=== PATIENT | female | born 1990 | race Two or more races ===

== ENCOUNTER 2018-07-25 23:58 | Inpatient (IN) | payer OTHER ==
[2018-07-26] MEDS ORDERED: Nalbuphine 20 MG/ML 1 ML Syringe IVPUSH PRN ×2 (01:04→14:35)
[2018-07-26] MEDS ORDERED: Ondansetron 4 MG/2 ML SDV IVPUSH PRN (01:04)
[2018-07-26] MEDS ORDERED: Sodium Chloride 0.9% 10 ML Syringe FLUSH PRN ×2 (01:04→14:35)
[2018-07-26] MEDS ORDERED: Oxytocin/Lactated Ringers 10 UNIT/1,000 ML BAG IV SCH ×4 (01:15→18:07)
[2018-07-26] MEDS ORDERED: Lactated Ringers 1,000 ML IV SCH ×3 (02:20→18:07)
--- NOTE | 2018-07-26 02:22 | PCM.LDHP ---
L&D History of Present Illness - General Date of Service: 07/26/18 Admit Problem/Dx: Patient Status Order with Admit Dx/Problem 07/26/18 00:12 Patient Status [ADT] Routine 07/26/18 01:04 Patient Status [ADT] Routine Admission Diagnosis/Problem Admission Diagnosis/Problem Source of Information: Patient History Limitations: Reports: No Limitations - History of Present Illness Introduction:: Alicia Mcrae is a 28 year old female at 36 weeks 4 days (MADDI 2018) by early U/S per her report who presents for evaluation of possible rupture of membranes. She reports that she has been having episodes of small gushes of fluid throughout the day and had been pink tinged color. She had at least 3-4 of these episodes. She eventually came in pressure she started having increased amounts of contractions with these episodes of small gushes of fluid. She reports the first episode happened at around 6 AM on 07/25/2018 and then again at around noon and at 6 to 6:30 PM. Once she was in the hospital she had an extremely large gush of fluid after having tested positive on Amnisure test. She reports good movement. Timing/Duration: Reports: intermittent Location, : Reports: Lower back, Pelvic Quality: Reports: Pressure, Throbbing Severity: Moderate Improves with: Reports: None Worsens with: Reports: None Associated Symptoms: Reports: vaginal fluid, large amount Present Illness Comments:: Alicia Mcrae is a 28 year old female at 36 weeks 4 days (MADDI 2018) by early ultrasound per her report with positive premature rupture of membranes with positive Amnisure test and large gush of fluid. She is having regular contractions without augmentation. She has had limited care in the [place] with one visit with Dr. Silverman on 07/15/2018. We do not have any records available from the hospital in [place] that she was going to for care. She was planning on having these records sent to our office sometime this week. 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: : 2 Para: 0 Endocrine/Metabolic History: Reports: Obesity/BMI 30+ - Past Surgical History GI Surgical History: Reports: Bariatric Procedure (Gastric bypass in 2018) Social & Family History - Tobacco Use Smoking Status *Q: Never Smoker Tobacco Use Within Last Twelve Months: No - Tobacco Core Measures Tobacco Use/Smoking Within Last 30 Days: No Smokeless Tobacco Use in Last 30 Days: No - Alcohol Use Alcohol Use History: No - Recreational Drug Use Recreational Drug Use: No Drug Use in Last 12 Months: No - Living Situation & Occupation Living situation: Reports: Single, with Significant Other H&P Review of Systems - Review of Systems: Review Of Systems: See Below General: Denies: Fever, Chills, Malaise, Weakness, Fatigue HEENT: Reports: Glasses. Denies: Headaches, Sinus Congestion, Sore Throat, Visual Changes Pulmonary: Denies: Shortness of Breath, Wheezing, Cough Cardiovascular: Denies: Chest Pain, Palpitations, Dyspnea on Exertion Gastrointestinal: Reports: Nausea. Denies: Abdominal Pain, Constipation, Diarrhea, Vomiting Genitourinary: Denies: Dysuria, Frequency, Burning, Pain, Urgency Musculoskeletal: Reports: Back Pain Skin: Denies: Rash, Lesions Psychiatric: Denies: Depression, Anxiety L&D Exam - Exam Exam: See Below - OB Specific Contraction Duration (sec): 45-75 Contraction Frequency (min): 2-4 Contraction Intensity: Strong Movement: Active Heart Tones: Present Heart Tones per Min: 140 (+15 x 15 accelerations, recurrent variable decelerations) Heart Rate (FHR) Variability: Moderate (6-25 bmp) Presentation: Vertex Estimated Weight: 6-6.5 by Quentin's, difficult to assess due to body habitus - Hodges Score Hodges Score Cervix Position: Anterior Hodges Score Consistency: Soft Hodges Score Effacement: >80% (90) Hodges Score Dilation: 3-4 cm (4) Hodges Score Infant's Station: -1 ,0 (0) Hodges Score Total: 11 - Exam General: Alert, Oriented HEENT: Conjunctiva Clear, EOMI Neck: Supple, Trachea Midline Lungs: Clear to Auscultation, Normal Respiratory Effort Cardiovascular: Regular Rate, Regular Rhythm GI/Abdominal Exam: Soft, No Distention, Other (Gravid). No: Guarding, Rigid, Rebound Genitourinary: Normal external exam Extremities: Normal Inspection, No Pedal Edema Skin: Warm, Dry, Intact Psychiatric: Alert, Normal Affect, Normal Mood - Patient Data Lab Results Last 24 hrs: Laboratory Results - last 24 hr 07/26/18 07/26/18 Range/Units 00:17 01:15 WBC 8.36 (3.98-10.04) K/mm3 RBC 4.36 (3.98-5.22) M/mm3 Hgb 12.0 (11.2-15.7) gm/L Hct 35.9 (34.1-44.9) % MCV 82.3 (79.4-94.8) fl MCH 27.5 (25.6-32.2) pg MCHC 33.4 (32.2-35.5) g/dl RDW Std Deviation 40.1 (36.4-46.3) fL Plt Count 180 L (182-369) K/mm3 MPV 10.3 (9.4-12.3) fl Membrane Rupture Positive H Result Diagrams: 07/26/18 01:15 - Problem List (1) 36 weeks gestation of SNOMED Code(s): 83955710 ICD Code: Z3A.36 - 36 WEEKS GESTATION OF Status: Acute Current Visit: Yes (2) premature rupture of membranes in third trimester SNOMED Code(s): 443970659 ICD Code: O42.913 - PRETRM PAT ROM, UNSP TIME BETW RUPT AND ONST LABR, 3RD TRI Status: Acute Current Visit: Yes (3) Limited care in third trimester SNOMED Code(s): 270895145, 071746714 ICD Code: O09.33 - SUPRVSN OF PREG W INSUFFICIENT ANTENAT CARE, THIRD TRIMESTER Status: Acute Current Visit: Yes (4) Obesity affecting in third trimester SNOMED Code(s): 830106525119, 470021078925 ICD Code: O99.213 - OBESITY COMPLICATING , THIRD TRIMESTER Status : Acute Current Visit: Yes Problem List Initiated/Reviewed/Updated: Yes Orders Last 24hrs: Active Orders 24 hr Category Date Time Status Patient Status [ADT] Routine ADT 07/26/18 01:04 Active Activity as Tolerated [RC] PFP Care 07/26/18 01:04 Active Communication Order [RC] ASDIRECTED Care 07/26/18 01:04 Active Heart Tones [RC] ASDIRECTED Care 07/26/18 01:04 Active Non Stress Test [RC] PER UNIT ROUTINE Care 07/26/18 00:12 Active Non Stress Test [RC] PER UNIT ROUTINE Care 07/26/18 01:04 Active Notify Provider [RC] PFP Care 07/26/18 01:04 Active Notify Provider [RC] PRN Care 07/26/18 01:04 Active Peripheral IV Care [RC] . DIRECTED Care 07/26/18 01:04 Active Vital Signs [RC] PER UNIT ROUTINE Care 07/26/18 00:12 Active Vital Signs [RC] PER UNIT ROUTINE Care 07/26/18 01:04 Active Regular Diet [DIET] Diet 07/26/18 Breakfast Active RAPID PLASMA REAGIN,RPR [CHEM] Routine Lab 07/26/18 01:15 Received Lactated Ringers [Ringers, Lactated] 1,000 ml Med 07/26/18 01:15 Active IV ASDIRECTED Nalbuphine [Nubain] Med 07/26/18 01:04 Active 10 mg IVPUSH Q2H PRN Ondansetron [Zofran] Med 07/26/18 01:04 Active 4 mg IVPUSH Q4H PRN Oxytocin/Lactated Ringers [Pitocin in LR 10 Units/1,000 Med 07/26/18 01:15 Active ML] 10 unit in 1,000 ml IV .CONTINUOUS Oxytocin/Lactated Ringers [Pitocin in LR 10 Units/1,000 Med 07/26/18 01:15 Active ML] 10 unit in 1,000 ml IV TITRATE Sodium Chloride 0.9% [Saline Flush] Med 07/26/18 01:04 Active 10 ml FLUSH ASDIRECTED PRN Electronic Heart Tones Ext w TOCO [WOMSER] Oth 07/26/18 01:04 Ordered Routine Electronic Heart Tones Internal [WOMSER] Per Unit Oth 07/26/18 01:04 Ordered Routine Peripheral IV Insertion Adult [OM.PC] Routine Oth 07/26/18 01:04 Ordered Resuscitation Status Routine Resus Stat 07/26/18 01:04 Ordered Medication Orders Lactated Ringer's (Ringers, Lactated) 1,000 mls @ 100 mls/hr IV ASDIRECTED LEIGH Oxytocin/Lactated Ringer's (Pitocin In Lr 10 Units/1,000 Ml) 10 unit in 1,000 mls @ 12 mls/hr IV TITRATE LEIGH; Protocol Oxytocin/Lactated Ringer's (Pitocin In Lr 10 Units/1,000 Ml) 10 unit in 1,000 mls @ 100 mls/hr IV .CONTINUOUS LEIGH Nalbuphine HCl (Nubain) 10 mg IVPUSH Q2H PRN PRN Reason: pain Ondansetron HCl (Zofran) 4 mg IVPUSH Q4H PRN PRN Reason: Nausea/Vomiting Sodium Chloride (Saline Flush) 10 ml FLUSH ASDIRECTED PRN PRN Reason: Keep Vein Open Assessment/Plan Comment:: Refer to observation for spontaneous premature rupture of membranes Patient with recurrent variables with suspected contractions on external tocometer and difficult to monitor heart rate in conjunction to the contractions. Intrauterine pressure catheter was placed at time of cervical exam. Patient continued to have recurrent variable decelerations and amnioinfusion was started. Continuous monitoring Place IV and have Lactated Ringer's at 125 ml/hr May have small amounts of regular diet Activity as tolerated May have epidural as desired Plans to breast-feed after delivery Anticipate vaginal delivery unless otherwise indicated Andrew Camacho M.D. 2:40 AM 07/26/2018
[2018-07-26] MEDS: Lactated Ringers 1,000 ML IV SCH ×5 (02:33→14:41)
--- NOTE | 2018-07-26 03:03 | PCM.PNLD ---
Labor Progress Note - VS & Meds Active Medications: Current Medications Lactated Ringer's (Ringers, Lactated) 1,000 mls @ 100 mls/hr IV ASDIRECTED LEIGH Last Admin: 07/26/18 02:33 Dose: 100 mls/hr Oxytocin/Lactated Ringer's (Pitocin In Lr 10 Units/1,000 Ml) 10 unit in 1,000 mls @ 12 mls/hr IV TITRATE LIEGH; Protocol Oxytocin/Lactated Ringer's (Pitocin In Lr 10 Units/1,000 Ml) 10 unit in 1,000 mls @ 100 mls/hr IV .CONTINUOUS LEIGH Lactated Ringer's (Ringers, Lactated) 1,000 mls @ 100 mls/hr IV ASDIRECTED LEIGH Nalbuphine HCl (Nubain) 10 mg IVPUSH Q2H PRN PRN Reason: pain Ondansetron HCl (Zofran) 4 mg IVPUSH Q4H PRN PRN Reason: Nausea/Vomiting Sodium Chloride (Saline Flush) 10 ml FLUSH ASDIRECTED PRN PRN Reason: Keep Vein Open - Uterine Contractions Uterine Monitoring Mode: IUPC Contraction Frequency (min): 2-4 Contraction Duration (sec): 60-75 Contraction Intensity: Moderate to Strong Uterine Resting Tone: Soft - Monitoring Monitor Mode: Spiral Electrode Heart Rate (FHR) Baseline: 145 Heart Rate (FHR) Variability: Moderate (6-25 bmp) Accelerations: Present, 15x15 Decelerations: Variable, Recurrent (>50% x 20 min) Strip Review: Category II - Vaginal Exam Dilation (cm): 5 Effacement (Percent): 100 Station: 0 Cervical Position: Anterior Sterile Vaginal Exam Performed By: Andrew Camacho Vaginal Exam Comment: scalp electrode placed due to difficulty monitoring using Doppler monitor. Electrodes placed without difficulty in mother and infant tolerated without difficulty. - Labor Progress (Free Text) Labor Progress: scalp electrode placed due to difficulty with monitoring heart rate with external Doppler monitor. Patient continues to have recurrent variable decelerations with amnioinfusion. We will continue amnioinfusion at this time. Patient desires epidural for anesthesia at this time and we will contact anesthesia Anticipate vaginal delivery unless otherwise indicated Andrew Camacho M.D. 3:03 AM 07/26/2018
[2018-07-26] MEDS ORDERED: fentaNYL 100 MCG/2 ML SDV EPIDUR PRN (03:23)
[2018-07-26] MEDS ORDERED: diphenhydrAMINE 50 MG/ML SDV IVPUSH PRN ×2 (03:23→18:07)
[2018-07-26] MEDS ORDERED: ePHEDrine 50 MG/ML SDV IVPUSH PRN ×2 (03:23→18:07)
[2018-07-26] MEDS ORDERED: Bupivacaine/fentaNYL/NS 100 ML Bag EPIDUR SCH (04:00)
--- NOTE | 2018-07-26 04:14 | PCM.PREANE ---
Preanesthetic Assessment - Anesthesia/Transfusion/Family Hx Anesthesia History: No Prior Anesthesia Family History of Anesthesia Reaction: No Transfusion History: No Prior Transfusion(s) Intubation History: Unknown - Review of Systems General: No Symptoms Pulmonary: No Symptoms Cardiovascular: No Symptoms Gastrointestinal: No Symptoms Neurological: No Symptoms Other: Reports: None - Physical Assessment Height: 1.63 m Weight: 108.409 kg ASA Class: 2E Mental Status: Alert & Oriented x3 Airway Class: Mallampati = 2 Dentition: Reports: Normal Dentition ROM/Head Extension: Full Lungs: Clear to Auscultation, Normal Respiratory Effort Cardiovascular: Regular Rate, Regular Rhythm, No Murmurs - Lab Values: Laboratory Last Values WBC 8.36 K/mm3 (3.98-10.04) 07/26/18 01:15 RBC 4.36 M/mm3 (3.98-5.22) 07/26/18 01:15 Hgb 12.0 gm/L (11.2-15.7) 07/26/18 01:15 Hct 35.9 % (34.1-44.9) 07/26/18 01:15 MCV 82.3 fl (79.4-94.8) 07/26/18 01:15 MCH 27.5 pg (25.6-32.2) 07/26/18 01:15 MCHC 33.4 g/dl (32.2-35.5) 07/26/18 01:15 RDW Std Deviation 40.1 fL (36.4-46.3) 07/26/18 01:15 Plt Count 180 K/mm3 (182-369) L 07/26/18 01:15 MPV 10.3 fl (9.4-12.3) 07/26/18 01:15 Membrane Rupture Positive H 07/26/18 00:17 - Allergies Allergies/Adverse Reactions: Allergies Allergy/AdvReac Type Severity Reaction Status Date / Time No Known Allergies Allergy Verified 07/26/18 02:35 - Anesthesia Plan Pre-Op Medication Ordered: None - Acknowledgements Anesthesia Type Planned: Epidural Pt an Appropriate Candidate for the Planned Anesthesia: Yes Alternatives and Risks of Anesthesia Discussed w Pt/Guardian: Yes Pt/Guardian Understands and Agrees with Anesthesia Plan: Yes 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: Endocrine/Metabolic History: Reports: Obesity/BMI 30+ - Past Surgical History GI Surgical History: Reports: Bariatric Procedure (Gastric bypass in 2018) - SUBSTANCE USE Smoking Status *Q: Never Smoker Tobacco Use Within Last Twelve Months: No Recreational Drug Use History: No - CURRENT (IN HOUSE) MEDS Current Meds: Current Medications Diphenhydramine HCl (Benadryl) 25 mg IVPUSH Q6H PRN PRN Reason: Pruritis Ephedrine Sulfate (Ephedrine Sulfate) 5 mg IVPUSH ONETIME PRN PRN Reason: Hypotension Fentanyl (Sublimaze) 100 mcg EPIDUR Q3H PRN PRN Reason: Pain Fentanyl/Bupivacaine HCl (Fentanyl/Bupivacaine/Ns 2 Mcg-0.125% 100 Ml) 100 ml EPIDUR ASDIRECTED LEIGH Lactated Ringer's (Ringers, Lactated) 1,000 mls @ 100 mls/hr IV ASDIRECTED LEIGH Last Admin: 07/26/18 03:38 Dose: 500 mls/hr Oxytocin/Lactated Ringer's (Pitocin In Lr 10 Units/1,000 Ml) 10 unit in 1,000 mls @ 12 mls/hr IV TITRATE LEIGH; Protocol Oxytocin/Lactated Ringer's (Pitocin In Lr 10 Units/1,000 Ml) 10 unit in 1,000 mls @ 100 mls/hr IV .CONTINUOUS LEIGH Lactated Ringer's (Ringers, Lactated) 1,000 mls @ 100 mls/hr IV ASDIRECTED LEIGH Last Infusion: 07/26/18 02:45 Dose: 50 mls/hr Nalbuphine HCl (Nubain) 10 mg IVPUSH Q2H PRN PRN Reason: pain Ondansetron HCl (Zofran) 4 mg IVPUSH Q4H PRN PRN Reason: Nausea/Vomiting Sodium Chloride (Saline Flush) 10 ml FLUSH ASDIRECTED PRN PRN Reason: Keep Vein Open
--- NOTE | 2018-07-26 04:14 | PCM.POSTAN ---
POST ANESTHESIA ASSESSMENT - MENTAL STATUS Mental Status: Alert - RESPIRATORY Respiratory Status: Respiratory Rate WNL, Airway Patent, O2 Saturation Stable - CARDIOVASCULAR CV Status: Pulse Rate WNL, Blood Pressure Stable - GASTROINTESTINAL GI Status: No Symptoms - POST OP HYDRATION Hydration Status: Adequate & Stable
[2018-07-26] MEDS ORDERED: Metoclopramide 10 MG/2 ML SDV IVPUSH ONE (14:35)
[2018-07-26] MEDS ORDERED: ceFAZolin 2 GM in Premix Bag 1 BAG IV ONE (14:35)
[2018-07-26] MEDS ORDERED: Citric Acid/Sodium Citrate Solution 30 ML Cup PO ONE (14:35)
[2018-07-26] MEDS ORDERED: Azithromycin 500 MG in Sodium Chloride 0.9% 250 ML IV ONE (14:37)
--- NOTE | 2018-07-26 14:47 | PCM.PNLD ---
Labor Progress Note - VS & Meds Vital Signs: Last Vital Signs Temp 36.8 C 07/26/18 00:45 Pulse 104 H 07/26/18 00:45 Resp 20 07/26/18 00:45 BP 116/71 07/26/18 00:45 Pulse Ox 98 07/26/18 00:45 Active Medications: Current Medications Diphenhydramine HCl (Benadryl) 25 mg IVPUSH Q6H PRN PRN Reason: Pruritis Ephedrine Sulfate (Ephedrine Sulfate) 5 mg IVPUSH ONETIME PRN PRN Reason: Hypotension Fentanyl (Sublimaze) 100 mcg EPIDUR Q3H PRN PRN Reason: Pain Fentanyl/Bupivacaine HCl (Fentanyl/Bupivacaine/Ns 2 Mcg-0.125% 100 Ml) 100 ml EPIDUR ASDIRECTED LEIGH Last Admin: 07/26/18 13:14 Dose: 100 ml Lactated Ringer's (Ringers, Lactated) 1,000 mls @ 100 mls/hr IV ASDIRECTED LEIGH Last Admin: 07/26/18 09:08 Dose: 100 mls/hr Oxytocin/Lactated Ringer's (Pitocin In Lr 10 Units/1,000 Ml) 10 unit in 1,000 mls @ 12 mls/hr IV TITRATE LEIGH; Protocol Last Titration: 07/26/18 13:15 Dose: 6 munits/min, 36 mls/hr Oxytocin/Lactated Ringer's (Pitocin In Lr 10 Units/1,000 Ml) 10 unit in 1,000 mls @ 100 mls/hr IV .CONTINUOUS LEIGH Lactated Ringer's (Ringers, Lactated) 1,000 mls @ 100 mls/hr IV ASDIRECTED [facility] Last Infusion: 07/26/18 02:45 Dose: 50 mls/hr Nalbuphine HCl (Nubain) 10 mg IVPUSH Q2H PRN PRN Reason: pain Ondansetron HCl (Zofran) 4 mg IVPUSH Q4H PRN PRN Reason: Nausea/Vomiting Sodium Chloride (Saline Flush) 10 ml FLUSH ASDIRECTED PRN PRN Reason: Keep Vein Open - Uterine Contractions Uterine Monitoring Mode: IUPC Contraction Frequency (min): 2-5 Contraction Duration (sec): 45-60 Contraction Intensity: Moderate Uterine Resting Tone: Soft - Monitoring Monitor Mode: Spiral Electrode Heart Rate (FHR) Baseline: 135 Heart Rate (FHR) Variability: Moderate (6-25 bmp) Accelerations: Present, 15x15 Decelerations: Variable, Recurrent (>50% x 20 min) Strip Review: Category II - Vaginal Exam Dilation (cm): 7 Effacement (Percent): 100 Station: 2 Cervical Position: Anterior Sterile Vaginal Exam Performed By: Andrew Camacho - Labor Progress (Free Text) Labor Progress: Patient was started on Pitocin augmentation of labor at approximately 10:30 this morning due to spacing out of her contractions and insufficient [place] units with use of the intrauterine pressure catheter. She had cervical change up to 7 cm at approximately 6:30 this morning and we had been holding off of use of the Pitocin for augmentation of labor due to her cervical change on her own and deep variable decelerations down into the 50s at times. After was tolerating labor well with amnioinfusion we did start her on Pitocin and were able to get up to 4 mU/m before she would have worsening of her variable decelerations. Since 6:30 AM she has had no cervical change and has not had any cervical change since starting on Pitocin at 10:30 AM. Discussed with patient that I would recommend for proceeding with section at this time due to arrest of dilation at 7 cm with intolerance of labor. Patient states understanding and would like to proceed with the procedure. The risks, benefits and alternatives were discussed with the patient and she desired to proceed with primary section. Consents were signed. * Plan for primary section in the setting of arrest of dilation at 7 cm and intolerance of labor * Patient to be nothing by mouth at this time. * Plan for SCDs for DVT prophylaxis * Ancef 2 g IV and azithromycin 500 mg IV for antibiotic prophylaxis in the setting of premature rupture of membranes * Continue LR at 125 mL/h * Continue amnioinfusion until transferring patient to the operating room for procedure * Plan for delivery Andrew Camacho M.D. 2:46 PM 07/26/2018
[2018-07-26] MEDS ORDERED: Lidocaine 2% with EPINEPHrine 1:200,000 20 ML SDV ONE (14:49)
[2018-07-26] MEDS ORDERED: ceFAZolin 1 GM Vial ONE (14:50)
[2018-07-26] MEDS ORDERED: Bupivacaine 0.5% 30 ML SDV ONE (14:55)
[2018-07-26] MEDS ORDERED: Oxytocin 10 Units/1 ML SDV ONE (15:50)
[2018-07-26] MEDS ORDERED: Lactated Ringers 1,000 ML ONE (15:51)
[2018-07-26] MEDS ORDERED: Midazolam 1 MG/ML 2 ML SDV ONE (16:07)
--- NOTE | 2018-07-26 17:04 | PCM.OPNOTE ---
- General Post-Op/Procedure Note Date of Surgery/Procedure: 07/26/18 Operative Procedure(s): Primary section and left paratubal cystectomy Findings: Live male delivered in vertex presentation at 1530. Apgars of 6 and 8. weight of 2930 g (6 pounds 7.4 ounces). Uterus, bilateral ovaries and right fallopian tube overall normal. Left fallopian tube with paratubal cyst that was excised at time of . Pre Op Diagnosis: 36 weeks gestational age, premature rupture of membranes, arrest of dilation at 7 cm and nonreassuring heart tones Post-Op Diagnosis: Same, left paratubal cyst Anesthesia Technique: Epidural Primary Surgeon: Andrew Camacho Anesthesia Provider: Matt Coreas Field Account Manager: Cammie Corea Field Account Manager: Rik Patterson ([employer] student) Reason Field Account Manager Was Necessary: Patient's safety and reduction of morbidity and mortality Role of Field Account Manager: Retraction for visualization during the procedure and safety of procedure Pathology: Left paratubal cyst Fluid Replacement, Intraop: 1,150 Output, Urine Amount: 250 EBL in mLs: 800 Complications: None Condition: Good Free Text/Narrative:: Intake & Output 07/26/18 07/26/18 07/26/18 06:59 14:59 22:59 Intake Total 1000 Output Total 275 Balance 1000 -275 Procedure in Detail: The patient was seen on labor and delivery and had a cervical exam that was unchanged at 7 cm over the course of approximately 8 hours with 4 hours of augmentation with Pitocin. Infant did not tolerate augmentation with Pitocin well due to recurrent variable decelerations that were occurring prior to Pitocin augmentation although they were improving with amnioinfusion. Discussed the risks, benefits, alternatives and complications with the patient. The patient desired to proceed with section and appropriate consents were signed. The patient was taken to operating room #1. A Time Out was held and the patient was identified using 2 identifiers and the procedure was confirmed. The patient was given epidural anesthesia and was placed in dorsal supine position with leftward tilt. She was given 2 g Ancef and 500 mg azithromycin IV for antibiotic prophylaxis. The patient was prepped and draped in the usual sterile manner. The abdominal skin was tested and the epidural anesthesia was found to be adequate. The skin was injected with 0.5% marcaine for local anesthesia. A Pfannenstiel skin incision was made and carried down through the subcutaneous tissue to the fascia with the scapel. The fascia was nicked in the midline using a scalpel and the fascial incision was extended transversely with Hood scissors. The superior aspect of the fascia was grasped with Karla clamps and tented upwards. The fascia was from the underlying rectus muscle bluntly and sharply with Hood scissors. Attention was then turned to the inferior aspect of the fascia and was grasped using Karla clamps and tented upwards. The underlying rectus muscle was dissected off bluntly and sharply with Hood scissors. The peritoneum was identified and entered bluntly. The bladder blade was inserted and the lower uterine segment was identified. A low transverse uterine incision was made sharply with a scalpel and extended laterally bluntly. The 's head was brought to the uterine incision, the bladder blade was removed and the was delivered atraumatically. On 2018 a live male was delivered in vertex position at 1530, wt of 2930 grams, 6 pounds and 7.4 ounces. APGARS were 6 & 8. The nose and mouth were suctioned with bulb suction, the cord was doubly clamped and cut and was transferred to the awaiting sterile instrument technician. The placenta was removed intact and appeared normal with a three vessel cord. The uterus was exteriorized and the uterine cavity was cleaned using lap sponges. The hysterotomy was closed with a running locked suture of 0-Vicryl. A second suture of 0-Vicryl was used to imbricate the hysterotomy. The hysterotomy was noted to have a small amount of bleeding near the right edge of the incision and a [id number]-ky-senlq suture with 0 Vicryl was placed and hemostasis was noted. The uterus, right fallopian tube and bilateral ovaries appeared overall normal. The left fallopian tube had a large approximately 8 x 15 cm paratubal cyst that was felt to potentially be causing compression onto the fallopian tube. Decision was made to excise this paratubal cyst. The peritoneum covering the paratubal cyst was incised using Metzenbaum scissors and the cyst was dissected out from the underlying tissue intact using blunt and sharp dissection with Metzenbaum scissors. There wass noted to be some bleeding from the surgical bed and this was stopped with 3-0 Monocryl sutures in aojauh-[id number]-cvopl fashion. The mesoslapinx peritoneum was reapproximated using 3-0 Monocryl suture in running fashion. The uterus was then returned into the abdominal cavity. The hysterotomy was noted to have a small amount of bleeding near the bladder reflection on the uterine wall. This was made hemostatic with use of 3-0 Monocryl suture. The fascia was noted to be hemostatic and the fascia was then reapproximated with running sutures of 0-Vicryl. The subcutaneous fat was reapproximated using 0 Vicryl. The skin was reapproximated using 4-0 Monocryl and Steri-strips were applied over the incision. Instrument, sponge, and needle counts were correct prior to the abdominal closure and at the conclusion of the case.
[2018-07-26] MEDS ORDERED: Bupivacaine 0.25% 10 ML SDV ONE (18:00)
[2018-07-26] MEDS ORDERED: Acetaminophen/oxyCODONE 325-5 MG Tab PO PRN (18:07)
[2018-07-26] MEDS ORDERED: Lanolin 100% Cream 7 GM Tube TOP PRN (18:07)
[2018-07-26] MEDS ORDERED: Naloxone 0.4 MG/ML SDV IVPUSH PRN (18:07)
[2018-07-26] MEDS: Acetaminophen/oxyCODONE 325-5 MG Tab PO PRN (19:35)
[2018-07-26] MEDS: Nitrofurantoin Monohydrate/Macrocrystalline 100 MG Cap PO SCH (21:03)
[2018-07-26] MEDS: Ketorolac 30 MG/ML SDV IVPUSH SCH (21:03)
[2018-07-26] MEDS: Docusate Sodium 100 MG Cap PO SCH (21:04)
[2018-07-27] MEDS: Acetaminophen/oxyCODONE 325-5 MG Tab PO PRN ×2 (02:10→14:50)
[2018-07-27] MEDS: Ketorolac 30 MG/ML SDV IVPUSH SCH ×2 (03:31→08:50)
[2018-07-27] MEDS: Nitrofurantoin Monohydrate/Macrocrystalline 100 MG Cap PO SCH ×2 (08:50→21:01)
[2018-07-27] MEDS: Docusate Sodium 100 MG Cap PO SCH ×2 (08:50→21:01)
[2018-07-27] MEDS: Prenatal Multivitamin with Calcium/Folic Acid/Iron Tab PO SCH (08:50)
--- NOTE | 2018-07-27 09:28 | PCM.SN ---
- Free Text/Narrative Note: Post Operative Progress Note POD # 1 Subjective: Doing well overall. Ambulating with minimal difficulty but moving slowly due to abdominal soreness. Lochia minimal. Ríos draining clear urine. Not passing flatus at this time but feels like she has to pass flatus. Tolerating minimal amount of regular diet without nausea or vomiting. Pain controlled with oral medications and IV Toradol. Breast-feeding with minimal difficulty. Objective: Vitals: Vital Signs - 24 hr 07/26/18 07/26/18 07/26/18 16:45 17:00 17:15 Temperature Temperature [ 37.3 C 36.8 C 37.1 C Temporal] Pulse, Peripheral Pulse, 107 H 86 86 Peripheral [ Left] Respiratory 18 17 18 Rate Blood Pressure Blood Pressure 118/74 97/56 L 105/66 [Left] O2 Sat by Pulse 100 98 98 Oximetry 07/26/18 07/26/18 07/26/18 17:30 17:45 18:00 Temperature 37.5 C Temperature [ 37.0 C 37.5 C Temporal] Pulse, 89 Peripheral Pulse, 84 83 101 H Peripheral [ Left] Respiratory 17 18 17 Rate Blood Pressure 95/48 L Blood Pressure 104/66 107/73 95/48 L [Left] O2 Sat by Pulse 97 98 97 Oximetry 07/26/18 07/26/18 07/26/18 18:01 18:17 18:29 Temperature 37.5 C Temperature [ Temporal] Pulse, 84 95 93 Peripheral Pulse, Peripheral [ Left] Respiratory 17 Rate Blood Pressure 110/66 94/75 Blood Pressure [Left] O2 Sat by Pulse 97 99 99 Oximetry 07/26/18 07/26/18 07/26/18 18:30 18:31 18:46 Temperature Temperature [ 37.3 C Temporal] Pulse, 89 95 Peripheral Pulse, 89 Peripheral [ Left] Respiratory 17 Rate Blood Pressure 105/54 L 107/66 Blood Pressure 105/84 [Left] O2 Sat by Pulse 98 98 100 Oximetry 07/26/18 07/26/18 07/26/18 19:00 19:02 19:29 Temperature 36.8 C Temperature [ 37.6 C Temporal] Pulse, 93 92 Peripheral Pulse, 82 Peripheral [ Left] Respiratory 20 Rate Blood Pressure 103/57 L Blood Pressure 103/57 L [Left] O2 Sat by Pulse 99 99 100 Oximetry 07/26/18 07/26/1807/26/19 20:01 21:01 21:10 Temperature Temperature [ Temporal] Pulse, 112 H 114 H 111 H Peripheral Pulse, Peripheral [ Left] Respiratory Rate Blood Pressure 115/83 113/61 Blood Pressure [Left] O2 Sat by Pulse 99 98 99 Oximetry 07/27/18 07/27/18 07/27/18 00:27 03:32 08:01 Temperature 36.8 C 36.9 C 36.6 C Temperature [ Temporal] Pulse, 107 H 103 H 109 H Peripheral Pulse, Peripheral [ Left] Respiratory 16 14 12 Rate Blood Pressure 107/59 L 93/52 L 98/56 L Blood Pressure [Left] O2 Sat by Pulse 98 96 98 Oximetry 07/27/18 08:02 Temperature 36.6 C Temperature [ Temporal] Pulse, 106 H Peripheral Pulse, Peripheral [ Left] Respiratory 12 Rate Blood Pressure 97/64 Blood Pressure [Left] O2 Sat by Pulse 99 Oximetry Intake & Output 07/25/18 07/26/18 07/27/18 07/28/18 06:59 06:59 06:59 06:59 Intake Total 6400 Output Total 2690 Balance 3710 Physical Exam General: Alert and oriented, no acute distress Lungs: Clear to auscultation bilaterally Heart: Regular rate and rhythm Abdomen: Soft, minimal appropriate tenderness, non-distended, fundus midline, nontender and at the umbilicus Incision: Clean, dry and intact, no erythema, bleeding or drainage with Steri- Strips in place Extremities: Trace edema in bilateral lower extremities to knees Labs: Laboratory Tests 07/26/18 07/26/18 Range/Units 01:15 01:15 WBC 8.36 (3.98-10.04) K/mm3 RBC 4.36 (3.98-5.22) M/mm3 Hgb 12.0 (11.2-15.7) gm/L Hct 35.9 (34.1-44.9) % MCV 82.3 (79.4-94.8) fl MCH 27.5 (25.6-32.2) pg MCHC 33.4 (32.2-35.5) g/dl RDW Std Deviation 40.1 (36.4-46.3) fL Plt Count 180 L (182-369) K/mm3 MPV 10.3 (9.4-12.3) fl Neut % (Auto) (34.0-71.1) % Lymph % (Auto) (19.3-51.7) % [place] % (Auto) (4.7-12.5) % Eos % (Auto) (0.7-5.8) Baso % (Auto) (0.1-1.2) % Neut # (Auto) (1.56-6.13) K/mm3 Lymph # (Auto) (1.18-3.74) K/mm3 [place] # (Auto) (0.24-0.36) K/mm3 Eos # (Auto) (0.04-0.36) K/mm3 Baso # (Auto) (0.01-0.08) K/mm3 RPR Non-reactive (NONREACTIVE) Blood Type Gel Antibody Screen 07/26/18 07/26/18 07/27/18 Range/Units 01:15 22:03 05:28 WBC 9.90 9.02 (3.98-10.04) K/mm3 RBC 3.31 L 3.12 L (3.98-5.22) M/mm3 Hgb 9.0 L D 8.4 L (11.2-15.7) gm/L Hct 27.8 L 26.4 L (34.1-44.9) % MCV 84.0 84.6 (79.4-94.8) fl MCH 27.2 26.9 (25.6-32.2) pg MCHC 32.4 31.8 L (32.2-35.5) g/dl RDW Std Deviation 40.4 40.2 (36.4-46.3) fL Plt Count 138 L 142 L (182-369) K/mm3 MPV 9.5 10.4 (9.4-12.3) fl Neut % (Auto) 78.5 H 75.2 H (34.0-71.1) % Lymph % (Auto) 13.2 L 16.7 L (19.3-51.7) % [place] % (Auto) 7.8 7.8 (4.7-12.5) % Eos % (Auto) 0.2 L 0.1 L (0.7-5.8) Baso % (Auto) 0.1 0.1 (0.1-1.2) % Neut # (Auto) 7.77 H 6.78 H (1.56-6.13) K/mm3 Lymph # (Auto) 1.31 1.51 (1.18-3.74) K/mm3 [place] # (Auto) 0.77 H 0.70 H (0.24-0.36) K/mm3 Eos # (Auto) 0.02 L 0.01 L (0.04-0.36) K/mm3 Baso # (Auto) 0.01 0.01 (0.01-0.08) K/mm3 RPR (NONREACTIVE) Blood Type AB POSITIVE Gel Antibody Screen Negative ASSESSMENT: 28-year-old female s/p primary section and paratubal cyst excision at time of section POD #1 for arrest of dilation at 7 cm and nonreassuring heart tones, complicated by obesity and limited care PLAN: Doing well Breast-feeding with minimal difficulty. Assist as needed Incision healing well. Continue to keep clean and dry. Lochia minimal. Continue to monitor for appropriate lochia. Continue routine post-operative care Discontinue Ríos catheter later this morning. Encourage ambulation Discontinue IV Toradol later this morning and transition to ibuprofen Anticipate discharge home tomorrow Andrew Camacho MD 9:25 AM 07/27/2018
[2018-07-27] MEDS ORDERED: Ibuprofen 600 MG Tab PO PRN (15:30)
[2018-07-28] MEDS: Acetaminophen/oxyCODONE 325-5 MG Tab PO PRN (00:17)
[2018-07-28] MEDS: Nitrofurantoin Monohydrate/Macrocrystalline 100 MG Cap PO SCH (09:07)
[2018-07-28] MEDS: Prenatal Multivitamin with Calcium/Folic Acid/Iron Tab PO SCH (09:08)
[2018-07-28] MEDS: Docusate Sodium 100 MG Cap PO SCH (09:08)
--- NOTE | 2018-07-28 09:18 | PCM.SN ---
- Free Text/Narrative Note: Post Operative Progress Note POD # 2 Subjective: Doing well overall. Ambulating with minimal difficulty. Lochia minimal. Voiding without difficulty. Passing flatus at this time but has not had bowel movement. Tolerating regular diet without nausea or vomiting. Pain controlled with oral medications but has not used any oral medications since last evening. Breast-feeding with minimal difficulty. Objective: Vitals: Vital Signs - 24 hr 07/27/18 07/27/18 07/27/18 12:23 17:09 21:04 Temperature 36.6 C 36.5 C 36.8 C Pulse, 97 111 H 102 H Peripheral Respiratory 14 12 16 Rate Blood Pressure 106/65 105/62 109/46 L O2 Sat by Pulse 97 98 100 Oximetry Physical Exam General: Alert and oriented, no acute distress Lungs: Clear to auscultation bilaterally Heart: Regular rate and rhythm Abdomen: Soft, minimal appropriate tenderness, non-distended, fundus midline, nontender and at the umbilicus Incision: Clean, dry and intact, no erythema, bleeding or drainage with Steri- Strips in place Extremities: Trace edema in bilateral lower extremities to mid shins ASSESSMENT: 28-year-old female s/p primary section and paratubal cyst excision at time of section POD #2 for arrest of dilation at 7 cm and nonreassuring heart tones, complicated by obesity and limited care PLAN: Doing well Breast-feeding with minimal difficulty. Assist as needed Incision healing well. Continue to keep clean and dry. Lochia minimal. Continue to monitor for appropriate lochia. Continue routine post-operative care Encourage ambulation Anticipate discharge home today Andrew Camacho MD 9:18 AM 07/28/2018
--- NOTE | 2018-07-28 09:26 | PCM.DCSUM1 ---
Discharge Summary - Hospital Course Free Text/Narrative:: - General Post-Op/Procedure Note Date of Surgery/Procedure: 07/26/18 Operative Procedure(s): Primary section and left paratubal cystectomy Findings: Live male delivered in vertex presentation at 1530 on 07/26/2018. Apgars of 6 and 8. weight of 2930 g (6 pounds 7.4 ounces). Uterus, bilateral ovaries and right fallopian tube overall normal. Left fallopian tube with paratubal cyst that was excised at time of . Pre Op Diagnosis: 36 weeks gestational age, premature rupture of membranes, arrest of dilation at 7 cm and nonreassuring heart tones Post-Op Diagnosis: Same, left paratubal cyst Anesthesia Technique: Epidural Primary Surgeon: Andrew Camacho Anesthesia Provider: Matt Coreas Reel Operator: Cammie Corea Reel Operator: Rik Patterson ([employer] student) Reason Reel Operator Was Necessary: Patient's safety and reduction of morbidity and mortality Role of Reel Operator: Retraction for visualization during the procedure and safety of procedure Pathology: Left paratubal cyst Fluid Replacement, Intraop: 1,150 Output, Urine Amount: 250 EBL in mLs: 800 Complications: None Condition: Good Free Text/Narrative:: Procedure in Detail: The patient was seen on labor and delivery and had a cervical exam that was unchanged at 7 cm over the course of approximately 8 hours with 4 hours of augmentation with Pitocin. did not tolerate augmentation with Pitocin well due to recurrent variable decelerations that were occurring prior to Pitocin augmentation although they were improving with amnioinfusion. Discussed the risks, benefits, alternatives and complications with the patient. The patient desired to proceed with section and appropriate consents were signed. The patient was taken to operating room #1. A Time Out was held and the patient was identified using 2 identifiers and the procedure was confirmed. The patient was given epidural anesthesia and was placed in dorsal supine position with leftward tilt. She was given 2 g Ancef and 500 mg azithromycin IV for antibiotic prophylaxis. The patient was prepped and draped in the usual sterile manner. The abdominal skin was tested and the epidural anesthesia was found to be adequate. The skin was injected with 0.5% marcaine for local anesthesia. A Pfannenstiel skin incision was made and carried down through the subcutaneous tissue to the fascia with the scapel. The fascia was nicked in the midline using a scalpel and the fascial incision was extended transversely with Hood scissors. The superior aspect of the fascia was grasped with Karla clamps and tented upwards. The fascia was from the underlying rectus muscle bluntly and sharply with Hood scissors. Attention was then turned to the inferior aspect of the fascia and was grasped using Karla clamps and tented upwards. The underlying rectus muscle was dissected off bluntly and sharply with Hood scissors. The peritoneum was identified and entered bluntly. The bladder blade was inserted and the lower uterine segment was identified. A low transverse uterine incision was made sharply with a scalpel and extended laterally bluntly. The infant's head was brought to the uterine incision, the bladder blade was removed and the infant was delivered atraumatically. On 2018 a live male was delivered in vertex position at 1530, wt of 2930 grams, 6 pounds and 7.4 ounces. APGARS were 6 & 8. The nose and mouth were suctioned with bulb suction, the cord was doubly clamped and cut and was transferred to the awaiting legend maker. The placenta was removed intact and appeared normal with a three vessel cord. The uterus was exteriorized and the uterine cavity was cleaned using lap sponges. The hysterotomy was closed with a running locked suture of 0-Vicryl. A second suture of 0-Vicryl was used to imbricate the hysterotomy. The hysterotomy was noted to have a small amount of bleeding near the right edge of the incision and a mqckue-wh-wkpik suture with 0 Vicryl was placed and hemostasis was noted. The uterus, right fallopian tube and bilateral ovaries appeared overall normal. The left fallopian tube had a large approximately 8 x 15 cm paratubal cyst that was felt to potentially be causing compression onto the fallopian tube. Decision was made to excise this paratubal cyst. The peritoneum covering the paratubal cyst was incised using Metzenbaum scissors and the cyst was dissected out from the underlying tissue intact using blunt and sharp dissection with Metzenbaum scissors. There wass noted to be some bleeding from the surgical bed and this was stopped with 3-0 Monocryl sutures in [id number] fashion. The mesoslapinx peritoneum was reapproximated using 3-0 Monocryl suture in running fashion. The uterus was then returned into the abdominal cavity. The hysterotomy was noted to have a small amount of bleeding near the bladder reflection on the uterine wall. This was made hemostatic with use of 3-0 Monocryl suture. The fascia was noted to be hemostatic and the fascia was then reapproximated with running sutures of 0-Vicryl. The subcutaneous fat was reapproximated using 0 Vicryl. The skin was reapproximated using 4-0 Monocryl and Steri-strips were applied over the incision. Instrument, sponge, and needle counts were correct prior to the abdominal closure and at the conclusion of the case. HPI Initial Comments: - General Post-Op/Procedure Note Date of Surgery/Procedure: 07/26/18 Operative Procedure(s): Primary section and left paratubal cystectomy Findings: Live male delivered in vertex presentation at 1530 on 07/26/2018. Apgars of 6 and 8. weight of 2930 g (6 pounds 7.4 ounces). Uterus, bilateral ovaries and right fallopian tube overall normal. Left fallopian tube with paratubal cyst that was excised at time of . Pre Op Diagnosis: 36 weeks gestational age, premature rupture of membranes, arrest of dilation at 7 cm and nonreassuring heart tones Post-Op Diagnosis: Same, left paratubal cyst Anesthesia Technique: Epidural Primary Surgeon: Andrew Camacho Anesthesia Provider: Matt Coreas Reel Operator: Cammie Corea Reel Operator: Rik Patterson ([employer] student) Reason Reel Operator Was Necessary: Patient's safety and reduction of morbidity and mortality Role of Reel Operator: Retraction for visualization during the procedure and safety of procedure Pathology: Left paratubal cyst Fluid Replacement, Intraop: 1,150 Output, Urine Amount: 250 EBL in mLs: 800 Complications: None Condition: Good Free Text/Narrative:: Procedure in Detail: The patient was seen on labor and delivery and had a cervical exam that was unchanged at 7 cm over the course of approximately 8 hours with 4 hours of augmentation with Pitocin. did not tolerate augmentation with Pitocin well due to recurrent variable decelerations that were occurring prior to Pitocin augmentation although they were improving with amnioinfusion. Discussed the risks, benefits, alternatives and complications with the patient. The patient desired to proceed with section and appropriate consents were signed. The patient was taken to operating room #1. A Time Out was held and the patient was identified using 2 identifiers and the procedure was confirmed. The patient was given epidural anesthesia and was placed in dorsal supine position with leftward tilt. She was given 2 g Ancef and 500 mg azithromycin IV for antibiotic prophylaxis. The patient was prepped and draped in the usual sterile manner. The abdominal skin was tested and the epidural anesthesia was found to be adequate. The skin was injected with 0.5% marcaine for local anesthesia. A Pfannenstiel skin incision was made and carried down through the subcutaneous tissue to the fascia with the scapel. The fascia was nicked in the midline using a scalpel and the fascial incision was extended transversely with Hood scissors. The superior aspect of the fascia was grasped with Karla clamps and tented upwards. The fascia was from the underlying rectus muscle bluntly and sharply with Hood scissors. Attention was then turned to the inferior aspect of the fascia and was grasped using Karla clamps and tented upwards. The underlying rectus muscle was dissected off bluntly and sharply with Hood scissors. The peritoneum was identified and entered bluntly. The bladder blade was inserted and the lower uterine segment was identified. A low transverse uterine incision was made sharply with a scalpel and extended laterally bluntly. The 's head was brought to the uterine incision, the bladder blade was removed and the infant was delivered atraumatically. On 2018 a live male was delivered in vertex position at 1530, wt of 2930 grams, 6 pounds and 7.4 ounces. APGARS were 6 & 8. The nose and mouth were suctioned with bulb suction, the cord was doubly clamped and cut and was transferred to the awaiting legend maker. The placenta was removed intact and appeared normal with a three vessel cord. The uterus was exteriorized and the uterine cavity was cleaned using lap sponges. The hysterotomy was closed with a running locked suture of 0-Vicryl. A second suture of 0-Vicryl was used to imbricate the hysterotomy. The hysterotomy was noted to have a small amount of bleeding near the right edge of the incision and a kbaitq-ve-ivane suture with 0 Vicryl was placed and hemostasis was noted. The uterus, right fallopian tube and bilateral ovaries appeared overall normal. The left fallopian tube had a large approximately 8 x 15 cm paratubal cyst that was felt to potentially be causing compression onto the fallopian tube. Decision was made to excise this paratubal cyst. The peritoneum covering the paratubal cyst was incised using Metzenbaum scissors and the cyst was dissected out from the underlying tissue intact using blunt and sharp dissection with Metzenbaum scissors. There wass noted to be some bleeding from the surgical bed and this was stopped with 3-0 Monocryl sutures in lxpacm-nx-acxac fashion. The mesoslapinx peritoneum was reapproximated using 3-0 Monocryl suture in running fashion. The uterus was then returned into the abdominal cavity. The hysterotomy was noted to have a small amount of bleeding near the bladder reflection on the uterine wall. This was made hemostatic with use of 3-0 Monocryl suture. The fascia was noted to be hemostatic and the fascia was then reapproximated with running sutures of 0-Vicryl. The subcutaneous fat was reapproximated using 0 Vicryl. The skin was reapproximated using 4-0 Monocryl and Steri-strips were applied over the incision. Instrument, sponge, and needle counts were correct prior to the abdominal closure and at the conclusion of the case. Brief History: - General Post-Op/Procedure Note. Date of Surgery/Procedure: . Operative Procedure(s): Primary section and left paratubal cystectomy. Findings: Live male delivered in vertex presentation at 1530 on 07/26/2018. Apgars of 6 and 8. weight of 2930 g (6 pounds 7.4 ounces). Uterus, bilateral ovaries and right fallopian tube overall normal. Left fallopian tube with paratubal cyst that was excised at time of . Pre Op Diagnosis: 36 weeks gestational age, premature rupture of membranes, arrest of dilation at 7 cm and nonreassuring heart tones. Post -Op Diagnosis: Same, left paratubal cyst. Anesthesia Technique: Epidural. Primary Surgeon: Andrew Camacho. Anesthesia Provider: Matt Coreas. Reel Operator: Cammie Corea. Reel Operator: Rik Patterson ([employer] student). Reason Reel Operator Was Necessary: Patient's safety and reduction of morbidity and mortality. Role of Reel Operator: Retraction for visualization during the procedure and safety of procedure. Pathology: Left paratubal cyst. Fluid Replacement, Intraop: 1,150. Output, Urine Amount: 250. EBL in mLs: 800. Complications: None. Condition: Good. Free Text/Narrative:: Procedure in Detail: The patient was seen on labor and delivery and had a cervical exam that was unchanged at 7 cm over the course of approximately 8 hours with 4 hours of augmentation with Pitocin. did not tolerate augmentation with Pitocin well due to recurrent variable decelerations that were occurring prior to Pitocin augmentation although they were improving with amnioinfusion. Discussed the risks, benefits, alternatives and complications with the patient. The patient desired to proceed with section and appropriate consents were signed. The patient was taken to operating room #1. A Time Out was held and the patient was identified using 2 identifiers and the procedure was confirmed. The patient was given epidural anesthesia and was placed in dorsal supine position with leftward tilt. She was given 2 g Ancef and 500 mg azithromycin IV for antibiotic prophylaxis. The patient was prepped and draped in the usual sterile manner. The abdominal skin was tested and the epidural anesthesia was found to be adequate. The skin was injected with 0.5% marcaine for local anesthesia. A Pfannenstiel skin incision was made and carried down through the subcutaneous tissue to the fascia with the scapel. The fascia was nicked in the midline using a scalpel and the fascial incision was extended transversely with Hood scissors. The superior aspect of the fascia was grasped with Karla clamps and tented upwards. The fascia was from the underlying rectus muscle bluntly and sharply with Hood scissors. Attention was then turned to the inferior aspect of the fascia and was grasped using Karla clamps and tented upwards. The underlying rectus muscle was dissected off bluntly and sharply with Hood scissors. The peritoneum was identified and entered bluntly. The bladder blade was inserted and the lower uterine segment was identified. A low transverse uterine incision was made sharply with a scalpel and extended laterally bluntly. The 's head was brought to the uterine incision, the bladder blade was removed and the was delivered atraumatically. On 07/26/2018 a live male was delivered in vertex position at 1530, wt of 2930 grams, 6 pounds and 7.4 ounces. APGARS were 6 & 8. The nose and mouth were suctioned with bulb suction, the cord was doubly clamped and cut and infant was transferred to the awaiting legend maker. The placenta was removed intact and appeared normal with a three vessel cord. The uterus was exteriorized and the uterine cavity was cleaned using lap sponges. The hysterotomy was closed with a running locked suture of 0-Vicryl. A second suture of 0-Vicryl was used to imbricate the hysterotomy. The hysterotomy was noted to have a small amount of bleeding near the right edge of the incision and a gmsfrf-rd-lcjcn suture with 0 Vicryl was placed and hemostasis was noted. The uterus, right fallopian tube and bilateral ovaries appeared overall normal. The left fallopian tube had a large approximately 8 x 15 cm paratubal cyst that was felt to potentially be causing compression onto the fallopian tube. Decision was made to excise this paratubal cyst. The peritoneum covering the paratubal cyst was incised using Metzenbaum scissors and the cyst was dissected out from the underlying tissue intact using blunt and sharp dissection with Metzenbaum scissors. There wass noted to be some bleeding from the surgical bed and this was stopped with 3-0 Monocryl sutures in figure-of- eight fashion. The mesoslapinx peritoneum was reapproximated using 3-0 Monocryl suture in running fashion. The uterus was then returned into the abdominal cavity. The hysterotomy was noted to have a small amount of bleeding near the bladder reflection on the uterine wall. This was made hemostatic with use of 3-0 Monocryl suture. The fascia was noted to be hemostatic and the fascia was then reapproximated with running sutures of 0-Vicryl. The subcutaneous fat was reapproximated using 0 Vicryl. The skin was reapproximated using 4-0 Monocryl and Steri-strips were applied over the incision. Instrument, sponge, and needle counts were correct prior to the abdominal closure and at the conclusion of the case. Diagnosis: Stroke: No - Discharge Data Discharge Date: 07/28/18 Discharge Disposition: Home, Self-Care 01 Condition: Good - Discharge Diagnosis/Problem(s) (1) 36 weeks gestation of SNOMED Code(s): 20059888 ICD Code: Z3A.36 - 36 WEEKS GESTATION OF Status: Acute Current Visit: Yes (2) premature rupture of membranes in third trimester SNOMED Code(s): 173481028 ICD Code: O42.913 - PRETRM PAT ROM, UNSP TIME BETW RUPT AND ONST LABR, 3RD TRI Status: Acute Current Visit: Yes (3) Limited care in third trimester SNOMED Code(s): 538632781, 682026782 ICD Code: O09.33 - SUPRVSN OF PREG W INSUFFICIENT ANTENAT CARE, THIRD TRIMESTER Status: Acute Current Visit: Yes (4) Obesity affecting in third trimester SNOMED Code(s): 798974521575, [id number] ICD Code: O99.213 - OBESITY COMPLICATING , THIRD TRIMESTER Status : Acute Current Visit: Yes (5) delivery delivered SNOMED Code(s): 725693044 ICD Code: O82 - ENCOUNTER FOR DELIVERY WITHOUT INDICATION Status: Acute Current Visit: Yes (6) Arrest of dilation, delivered, current hospitalization SNOMED Code(s): 65028104 ICD Code: O62.1 - SECONDARY UTERINE INERTIA Status: Acute Current Visit: Yes - Patient Summary/Data Operative Procedure(s) Performed: Primary section and left paratubal cystectomy Complications: None Consults: Consultations 07/26/18 22:47 Consult to Case Management/Security Delivery Specialist [CONS] Routine Hospital Course: Alicia Mcrae was admitted for premature rupture of membranes. On admission her cervix was dilated to 4 cm. She was GBS negative. She was given an epidural for anesthesia. She was having recurrent variable decelerations and had an intrauterine pressure catheter placed for closer monitoring of her contractions. An amnioinfusion was started to help with the recurrent variable decelerations and helped reduce the severity and frequency of the decelerations. She had a scalp electrode placed for monitoring heart rate due to difficulty with external Doppler. She progressed to 7 cm and had spacing out of her contractions. She was started on Pitocin for augmentation of labor but was only able to get up to a total of 5 milliunits of Pitocin due to recurrent variable decelerations. After approximately 4 hours of labor without Pitocin and 4 hours with Pitocin she continued to be dilated to 7 cm. It was felt that she had an arrest of dilation of her cervix at this time and would likely not tolerate additional augmentation of labor with Pitocin. Discussion was had with the patient regarding recommendation for section and she desired to proceed with the procedure. The risks, benefits and alternatives were reviewed with the patient and consents were signed. She was taken back to the OR and given dosing through her epidural for anesthesia. She was given Ancef 2 g and is azithromycin 500 mg IV for antibiotic prophylaxis. She was prepped and draped in the normal fashion. On she had a primary delivery of a live male infant at 1530. Apgars of 6 and 8. Weight of 2930 g (6 pounds 7.4 ounces). She had a left paratubal cyst that was removed at time of . She was closed in a normal fashion. There were no other complications with the procedure. Please see the operative report for full details. Her post operative course was uneventful. Her pain was well controlled and she had minimal lochia. She was ambulating, tolerating a regular diet and voiding normally. She was passing flatus and has not had a bowel movement. She was breast feeding with minimal difficulty. She was afebrile and her hematocrit was 26.4 on POD #1. She desired to be discharged home on the morning of POD #2. Her blood type is AB+. She was continued on treatment with Macrobid for her UTI that she was diagnosed with at her last visit. - Patient Instructions Diet: Regular Diet as Tolerated Activity: Apply Ice, As Tolerated, No Lifting Over 25 Pounds Activity, Other: Nothing in the vagina for 6 weeks Driving: Do Not Drive (While on narcotic medications or having significant pain) Showering/Bathing: May Shower Wound/Incision Care: Keep Operative Site/Wound Site Clean and Dry Notify Provider of: Fever, Increased Pain, Swelling and Redness, Drainage, Nausea and/or Vomiting Other/Special Instructions: Please contact your physician's office if you note any bleeding or pus coming from the abdominal incision. Please contact your physician's office if you have heavy vaginal bleeding enough to soak a pad in less than an hour for several hours. Monitor for any signs of an infection in the breasts with severe pain or redness of the breast. - Discharge Plan *PRESCRIPTION DRUG MONITORING PROGRAM REVIEWED*: Yes *COPY OF PRESCRIPTION DRUG MONITORING REPORT IN PATIENT ARCENIO: No (No records available in [place] PDMP) Prescriptions/Med Rec: Acetaminophen/oxyCODONE [Percocet 325-5 MG] 1 - 2 tab PO Q6H PRN #20 tablet PRN Reason: Pain Home Medications: Home Meds Acetaminophen/oxyCODONE [Percocet 325-5 MG] 1 - 2 tab PO Q6H PRN #20 tablet [Rx] Docusate Sodium [Colace] 100 mg PO Q12H cap 07/28/18 [Rx] Ibuprofen [Motrin] 600 mg PO Q6H PRN tablet 07/28/18 [Rx] Lanolin [Lansinoh HPA] 1 applic TOP ASDIRECTED PRN tube 07/28/18 [Rx] Nitrofurantoin Harlan/Macrocryst [Nitrofurantoin Harlan-MCR] 100 mg PO BID cap [Rx] Vit with Ca/FA/Iron [ Plus Iron] 1 each PO DAILY tablet [Rx] Patient Handouts: Care After Delivery Referrals: Brandon Silverman MD [Physician] - 08/11/18 (Follow up in 2 weeks for routine postop appointment or earlier as needed) - Discharge Summary/Plan Comment DC Time >30 min.: No - Patient Data Vitals - Most Recent: Last Vital Signs Temp 36.8 C 07/27/18 21:04 Pulse 102 H 07/27/18 21:04 Resp 16 07/27/18 21:04 BP 109/46 L 07/27/18 21:04 Pulse Ox 100 07/27/18 21:04 Weight - Most Recent: 108.409 kg I&O - Last 24 hours: Intake & Output 07/27/18 07/28/18 07/28/18 22:59 06:59 14:59 Output Total 750 Balance -750 Med Orders - Current: Current Medications Diphenhydramine HCl (Benadryl) 25 mg IVPUSH Q6H PRN PRN Reason: Itching or Nausea Docusate Sodium (Colace) 100 mg PO Q12H LEIGH Last Admin: 07/28/18 09:08 Dose: 100 mg Emollient Ointment (Lansinoh Hpa) 0 gm TOP ASDIRECTED PRN PRN Reason: Sore Nipples Ephedrine Sulfate (Ephedrine Sulfate) 5 mg IVPUSH SEECOMMENT PRN PRN Reason: Other Oxytocin/Lactated Ringer's (Pitocin In Lr 10 Units/1,000 Ml) 10 unit in 1,000 mls @ 100 mls/hr IV .CONTINUOUS [facility] Ibuprofen (Motrin) 600 mg PO Q6H PRN PRN Reason: mild pain or fever Naloxone HCl (Narcan) 0.1 mg IVPUSH SEECOMMENT PRN PRN Reason: Respiratory Depression Nitrofurantoin Macrocrystals (Macrobid) 100 mg PO BID [facility] Last Admin: 07/28/18 09:07 Dose: 100 mg Oxycodone/Acetaminophen (Percocet 325-5 Mg) 1 tab PO Q6H PRN PRN Reason: Pain (moderate 4-6) Oxycodone/Acetaminophen (Percocet 325-5 Mg) 2 tab PO Q6H PRN PRN Reason: Pain (severe 7-10) Last Admin: 07/28/18 00:17 Dose: 2 tab Prenat Multivit/Feeder Catcher Tobacco/Iron/Folic Ac ( Plus Iron) 1 each PO DAILY [facility] Last Admin: 07/28/18 09:08 Dose: 1 each Discontinued Medications Bupivacaine HCl (Marcaine 0.5%) Confirm Administered Dose 30 ml .ROUTE .STK-MED ONE Stop: 07/26/18 14:56 Last Admin: 07/26/18 15:22 Dose: 20 ml Bupivacaine HCl (Sensorcaine-Mpf 0.25%) 10 ml .ROUTE .STK-MED ONE Stop: 07/26/18 18:01 Cefazolin Sodium (Ancef) Confirm Administered Dose 1 gm .ROUTE .STK-MED ONE Stop: 07/26/18 14:51 Citric Acid/Sodium Citrate (Bicitra Solution) 30 ml PO ONETIME ONE Stop: 07/26/18 14:36 Last Admin: 07/26/18 14:42 Dose: 30 ml Diphenhydramine HCl (Benadryl) 25 mg IVPUSH Q6H PRN PRN Reason: Pruritis Ephedrine Sulfate (Ephedrine Sulfate) 5 mg IVPUSH ONETIME PRN PRN Reason: Hypotension Fentanyl (Sublimaze) 100 mcg EPIDUR Q3H PRN PRN Reason: Pain Fentanyl/Bupivacaine HCl (Fentanyl/Bupivacaine/Ns 2 Mcg-0.125% 100 Ml) 100 ml EPIDUR ASDIRECTED [facility] Last Admin: 07/26/18 13:14 Dose: 100 ml Lactated Ringer's (Ringers, Lactated) 1,000 mls @ 100 mls/hr IV ASDIRECTED LEIGH Last Admin: 07/26/18 14:41 Dose: 100 mls/hr Oxytocin/Lactated Ringer's (Pitocin In Lr 10 Units/1,000 Ml) 10 unit in 1,000 mls @ 12 mls/hr IV TITRATE LEIGH; Protocol Last Titration: 07/26/18 13:51 Dose: 0 munits/min, 0 mls/hr Oxytocin/Lactated Ringer's (Pitocin In Lr 10 Units/1,000 Ml) 10 unit in 1,000 mls @ 100 mls/hr IV .CONTINUOUS LEIGH Lactated Ringer's (Ringers, Lactated) 1,000 mls @ 100 mls/hr IV ASDIRECTED LEIGH Last Infusion: 07/26/18 02:45 Dose: 50 mls/hr Cefazolin Sodium/Dextrose 2 gm (/ Premix) 50 mls @ 100 mls/hr IV ONETIME ONE Stop: 07/26/18 15:04 Last Admin: 07/26/18 19:55 Dose: Not Given Azithromycin 500 mg/ Sodium (Chloride) 250 mls @ 250 mls/hr IV ONETIME ONE Stop: 07/26/18 15:36 Last Admin: 07/26/18 19:55 Dose: Not Given Lactated Ringer's (Ringers, Lactated) 1,000 mls @ 125 mls/hr IV ASDIRECTED LEIGH Oxytocin/Lactated Ringer's (Pitocin In Lr 10 Units/1,000 Ml) 10 unit in 1,000 mls @ 100 mls/hr IV ASDIRECTED LEIGH; Protocol Lactated Ringer's (Ringers, Lactated) Confirm Administered Dose 1,000 mls @ as directed .ROUTE .STK-MED ONE Stop: 07/26/18 15:52 Lactated Ringer's (Ringers, Lactated) 1,000 mls @ 125 mls/hr IV ASDIRECTED LEIGH Stop: 07/27/18 02:06 Last Admin: 07/26/18 21:11 Dose: 125 mls/hr Ketorolac Tromethamine (Toradol) 30 mg IVPUSH Q6H LEIGH Stop: 07/27/18 09:31 Last Admin: 07/27/18 08:50 Dose: 30 mg Lidocaine/Epinephrine (Xylocaine-Mpf 2%-Epi 1:200,000) Confirm Administered Dose 20 ml .ROUTE .STK-MED ONE Stop: 07/26/18 14:50 Metoclopramide HCl (Reglan) 10 mg IVPUSH ONETIME ONE Stop: 07/26/18 14:36 Last Admin: 07/26/18 14:42 Dose: 10 mg Midazolam HCl (Versed 1 Mg/Ml) Confirm Administered Dose 2 mg .ROUTE .STK-MED ONE Stop: 07/26/18 16:08 Nalbuphine HCl (Nubain) 10 mg IVPUSH Q2H PRN PRN Reason: pain Nalbuphine HCl (Nubain) 10 mg IVPUSH Q2H PRN PRN Reason: pain Ondansetron HCl (Zofran) 4 mg IVPUSH Q4H PRN PRN Reason: Nausea/Vomiting Oxytocin (Pitocin) Confirm Administered Dose 10 unit .ROUTE .STK-MED ONE Stop: 07/26/18 15:51 Sodium Chloride (Saline Flush) 10 ml FLUSH ASDIRECTED PRN PRN Reason: Keep Vein Open Sodium Chloride (Saline Flush) 10 ml FLUSH ASDIRECTED PRN PRN Reason: Keep Vein Open
== END 2018-07-28 13:35 | disposition home or self-care (01) | DRG 785 ==
LOC: JD.OBCHECK 23:58 → JD.OB 07-26 00:02 → JD.OBCHECK 07-26 01:04 → JD.OB 07-26 02:06 → OBSVTOIN 07-26 15:30 → JD.OB 07-26 15:31
PROVIDERS: ADMIT Obstetrics & Gynecology; ATTEND Obstetrics & Gynecology
PROC: 10H073Z Insertion of Monitoring Electrode into Products of Conception, Via Natural or Artificial Opening (ICD-10-PCS; principal; 2018-07-26)
PROC: 10H07YZ Insertion of Other Device into Products of Conception, Via Natural or Artificial Opening (ICD-10-PCS; principal; 2018-07-26)
PROC: 10D00Z1 Extraction of Products of Conception, Low, Open Approach (ICD-10-PCS; principal; 2018-07-26)
PROC: 0UB60ZZ Excision of Left Fallopian Tube, Open Approach (ICD-10-PCS; principal; 2018-07-26)
PROC: 3E0E7GC Introduction of Other Therapeutic Substance into Products of Conception, Via Natural or Artificial Opening (ICD-10-PCS; principal; 2018-07-26)
PROC: 3E0R3BZ Introduction of Anesthetic Agent into Spinal Canal, Percutaneous Approach (ICD-10-PCS; 2018-07-26)
PROC: 00HU33Z Insertion of Infusion Device into Spinal Canal, Percutaneous Approach (ICD-10-PCS; 2018-07-26)
DX: O42.913 Preterm premature rupture of membranes, unspecified as to length of time between rupture and onset of labor, third trimester (principal); Z3A.36 36 weeks gestation of pregnancy; Z37.0 Single live birth; O75.89 Other specified complications of labor and delivery; N83.8 Other noninflammatory disorders of ovary, fallopian tube and broad ligament; O62.1 Secondary uterine inertia; O76 Abnormality in fetal heart rate and rhythm complicating labor and delivery; O99.214 Obesity complicating childbirth; E66.9 Obesity, unspecified; Z98.84 Bariatric surgery status
CPT/HCPCS: 36415; 51702; 59025; 59409; 84112; 85025; 85027; 86592; 86850; 86900; 86901; A9270-GY; J0690; J1885; J2250; J2590; J2765; J3490; J7120